=== PATIENT | male | born 1945 | race Caucasian/White ===

== ENCOUNTER 2018-08-31 18:54 | Inpatient (IN) | payer MEDICAID ==
[~2018-08-31] VITALS: Ht 167.6 cm; Wt 100.2 kg
[2018-08-31 20:08] LABS: BASOPHIL % 0.9 % (0-2); PLATELET COUNT 243 x10^3mcL (130-400); RED CELL DISTRIBUTION WIDTH 13.2 % (11.5-14.5)
[2018-08-31 20:22] LABS: CALCIUM 8.9 mg/dL (8.5-10.1); CARBON DIOXIDE 31.3 mmol/L (21-32); CHLORIDE SERUM 104 mmol/L (98-107); CREATININE SERUM 1.3 mg/dL (0.7-1.3); GLUCOSE SERUM 85 mg/dL (74-106); POTASSIUM SERUM 5.4 mmol/L (3.5-5.1); SODIUM SERUM 140 mmol/L (136-145)
[2018-08-31 20:27] LABS: ALBUMIN 3.4 g/dL (3.4-5.0); ALKALINE PHOSPHATASE 105 U/L (46-116); ALT/SGPT 21 U/L (16-63); AST/SGOT 48 U/L (15-37); BILIRUBIN TOTAL 0.7 mg/dL (0.20-1.00); LIPASE 132 IU/L (73-393); TOTAL PROTEIN, SERUM 7.2 g/dL (6.4-8.2)
[2018-08-31] MEDS ORDERED: BAYER ASPIRIN C81 MG (22:11)
[2018-08-31] MEDS ORDERED: CLARITIN10 MG (22:12)
[2018-08-31] MEDS ORDERED: LIPITOR40 MG (22:12)
[2018-08-31] MEDS ORDERED: CARVEDILOL6.25 M1 (22:12)
[2018-08-31] MEDS ORDERED: ZESTRIL5 MG (22:12)
[2018-08-31 23:35] LABS: MAGNESIUM 1.6 mg/dL (1.8-2.4); PHOSPHOROUS 4.1 mg/dL (2.5-4.9)
[2018-09-01 00:43] VITALS: BP 113/87
[2018-09-01 01:03] LABS: CHOLESTEROL/HDL RATIO 2.6
[2018-09-01 03:21] LABS: UA SPECIFIC GRAVITY >=1.030 (1.005-1.035); microscopic required? YES; urine erythrocyte NEGATIVE (NEGATIVE)
[2018-09-01 04:05] LABS: AMPHETAMINE QUAL UR NONE DETECTED (See below)
[2018-09-01 04:57] VITALS: BP 103/59
[2018-09-01 07:24] VITALS: BP 130/82
[2018-09-01 12:46] VITALS: BP 109/66
[2018-09-01 15:41] VITALS: BP 103/64
[2018-09-01 17:14] LABS: CALCIUM 8.9 mg/dL (8.5-10.1); CARBON DIOXIDE 31.2 mmol/L (21-32); CHLORIDE SERUM 101 mmol/L (98-107); CREATININE SERUM 1.4 mg/dL (0.7-1.3); GLUCOSE SERUM 95 mg/dL (74-106); POTASSIUM SERUM 4.5 mmol/L (3.5-5.1); SODIUM SERUM 140 mmol/L (136-145)
[2018-09-01 20:48] VITALS: BP 93/64
[2018-09-02 05:49] VITALS: BP 115/85
[2018-09-02 09:17] VITALS: BP 125/75
[2018-09-02 13:55] VITALS: BP 100/73
[2018-09-02 16:48] VITALS: BP 100/73
[2018-09-02 20:47] VITALS: BP 110/70
[2018-09-02 20:50] VITALS: BP 110/70
[2018-09-03 06:19] VITALS: BP 117/62
[2018-09-03 07:28] LABS: CARBON DIOXIDE 33.9 mmol/L (21-32); CHLORIDE SERUM 101 mmol/L (98-107); CREATININE SERUM 1.4 mg/dL (0.7-1.3); GLUCOSE SERUM 79 mg/dL (74-106); MAGNESIUM 1.6 mg/dL (1.8-2.4); POTASSIUM SERUM 4.5 mmol/L (3.5-5.1); SODIUM SERUM 141 mmol/L (136-145)
[2018-09-03 07:29] LABS: BASOPHIL % 0.6 % (0-2); PLATELET COUNT 223 x10^3mcL (130-400); RED CELL DISTRIBUTION WIDTH 12.9 % (11.5-14.5)
[2018-09-03 07:59] VITALS: BP 104/70
== END 2018-09-03 09:48 | disposition left against medical advice (07) ==
LOC: ED 18:54 → DU 22:31
PROVIDERS: Emergency Medicine; ADMIT Internal Medicine
DX: K80.20 Calculus of gallbladder without cholecystitis without obstruction (principal); N17.0 Acute kidney failure with tubular necrosis; I50.23 Acute on chronic systolic (congestive) heart failure; J90 Pleural effusion, not elsewhere classified; E83.42 Hypomagnesemia; E87.5 Hyperkalemia; I08.1 Rheumatic disorders of both mitral and tricuspid valves; I27.20 Pulmonary hypertension, unspecified; I48.91 Unspecified atrial fibrillation; I11.9 Hypertensive heart disease without heart failure; I25.10 Atherosclerotic heart disease of native coronary artery without angina pectoris; J98.11 Atelectasis; I51.7 Cardiomegaly; K57.30 Diverticulosis of large intestine without perforation or abscess without bleeding; E78.5 Hyperlipidemia, unspecified; I25.2 Old myocardial infarction; Z79.82 Long term (current) use of aspirin; Z53.29 Procedure and treatment not carried out because of patient's decision for other reasons
CPT/HCPCS: 83880; J1885; J1940; J3490; J7030; Q0092